=== PATIENT | male | born 1990 | race Caucasian/White ===

== ENCOUNTER 2024-12-19 00:23 | Inpatient (IN) | payer MEDICAID ==
[~2024-12-19] VITALS: Ht 175.3 cm; Wt 71.7 kg
[~2024-12-19 00:23] MED LIST: DIVA-153 PO; DIVA500T69 PO; IBUP-1554 PO; OLAN10TA26 PO
[2024-12-19 01:37] LABS: EOSINOPHILS % (AUTO) 2.2 % (1.0-6.0); HEMATOCRIT 41.4 % (41-53); HEMOGLOBIN 13.6 g/dL (13.5-17.5); LYMPHOCYTES # (AUTO) 2.8 K/uL (1.0-4.8); LYMPHOCYTES % (AUTO) 36.4 % (22.0-44.0); MEAN CORPUSCULAR HEMOGLOBIN 26.8 pg (26.0-34.0); MEAN CORPUSCULAR HGB CONC 32.8 G/dL (31.0-37.0); MEAN CORPUSCULAR VOLUME 82 fL (80-100); MONOCYTES # (AUTO) 0.8 K/uL (0.1-1.0); MONOCYTES % (AUTO) 10.5 % (2.0-9.0); NEUTROPHILS # (AUTO) 3.8 K/uL (1.8-7.7); NEUTROPHILS % (AUTO) 49.9 % (40.0-70.0); PLATELET COUNT (AUTO) 272 K/uL (150-450); RED BLOOD CELL COUNT(AUTO) 5.06 MIL/uL (4.50-5.90); WHITE BLOOD COUNT (AUTO) 7.6 K/uL (4.5-11.0)
[2024-12-19 01:45] LABS: ALCOHOL, BLOOD (SERUM) < 3 mg/dL (0-10)
[2024-12-19 01:47] LABS: ANION GAP 9 mmol/L (8-16); CALCIUM, TOTAL 8.6 mg/dL (8.8-10.5); CARBON DIOXIDE 26 mmol/L (22-29); CHLORIDE 103 mmol/L (98-107); CREATININE 1.01 mg/dL (0.60-1.30); GLOMERULAR FILTR. RATE CALC > 60 mL/min (>60); GLUCOSE,RANDOM 100 mg/dL (70-110); POTASSIUM 3.7 mmol/L (3.5-5.1); SODIUM SERUM 138 mmol/L (136-145); UREA NITROGEN, BLOOD 12 mg/dL (7-18)
[2024-12-19 01:50] LABS: COVID AG,FIA SOURCE NASAL SWAB
[2024-12-19 01:56] LABS: APPEARANCE,URINE CLEAR (CLEAR); BILIRUBIN,URINE NEGATIVE (NEGATIVE); COLOR,URINE LIGHT YELLOW (YELLOW); GLUCOSE, URINE (UA) NEGATIVE (NEGATIVE); KETONES,URINE NEGATIVE (NEGATIVE); LEUKOCYTE ESTERASE ,URINE NEGATIVE (NEGATIVE); NITRATE,URINE NEGATIVE (NEGATIVE); OCCULT BLOOD,URINE NEGATIVE (NEGATIVE); PROTEIN,URINE NEGATIVE (NEGATIVE); SPECIFIC GRAVITIY, URINE 1.015 (1.003-1.030); UROBILINOGEN,URINE <=1.0 mg/dL (<=1.0)
[2024-12-19 01:57] LABS: SARS-COV2 (COVID) ANTIGEN,FIA Negative (Negative)
[2024-12-19 02:03] LABS: AMPHET/METH SCREEN,URINE NEGATIVE (NEGATIVE); BARBITURATE SCREEN, URINE NEGATIVE (NEGATIVE); BENZODIAZEPINES SCREEN,URINE NEGATIVE (NEGATIVE); CANNABINOID SCREEN,URINE NEGATIVE (NEGATIVE); COCAINE SCREEN,URINE NEGATIVE (NEGATIVE); METHADONE SCREEN, URINE NEGATIVE (NEGATIVE); OPIATE SCREEN,URINE NEGATIVE (NEGATIVE); PHENCYCLIDINE SCREEN,URINE NEGATIVE (NEGATIVE)
[2024-12-19 02:04] LABS: ALCOHOL, URINE DRUG SCREEN NEGATIVE (NEGATIVE)
[2024-12-19 06:50] VITALS: O2SAT 100
[2024-12-19] MEDS ORDERED: ZOLPIDEM TARTRATE 10 MG TABLET PO PRN (10:30)
[2024-12-19 12:54] VITALS: BP 141/81; PULSE 88; RESP 17; TEMP 98.2; O2SAT 100
[2024-12-19] MEDS ORDERED: CloNIDine HCL 0.1 MG TABLET PO PRN (17:15)
[2024-12-19] MEDS ORDERED: PETROLATUM,WHITE 28 GM JELLY TP PRN (17:15)
[2024-12-19] MEDS ORDERED: IBUPROFEN 400 MG TABLET PO PRN (17:15)
[2024-12-19] MEDS ORDERED: LOPERAMIDE HCL 2 MG CAPSULE PO PRN (17:15)
[2024-12-19] MEDS ORDERED: MAGNESIUM HYDROXIDE SUSPENSION 30 ML UDCUP PO PRN (17:15)
[2024-12-19] MEDS ORDERED: ONDANSETRON 4 MG TABLET PO PRN (17:15)
[2024-12-19] MEDS ORDERED: ALBUTEROL SULFATE HFA 90 MCG/PUFF 8 GM INHALER IH PRN (17:15)
[2024-12-19] MEDS ORDERED: DOCUSATE SODIUM 100 MG CAPSULE PO PRN (17:15)
[2024-12-19] MEDS ORDERED: GuaiFENesin/D-METHORPHAN [SUGAR-FREE] 200-20MG/10 ML SYRUP UDCUP PO PRN (17:15)
[2024-12-19] MEDS: QUEtiapine FUMARATE 200 MG TABLET PO SCH (20:43)
[2024-12-19 20:49] VITALS: BP 137/97; PULSE 86; RESP 18; TEMP 97.4; O2SAT 99
[2024-12-20 08:45] LABS: BASOPHILS % (AUTO) 0.7 % (0.0-2.0); EOSINOPHILS % (AUTO) 3.2 % (1.0-6.0); HEMATOCRIT 47.2 % (41-53); HEMOGLOBIN 15.2 g/dL (13.5-17.5); LYMPHOCYTES # (AUTO) 2.3 K/uL (1.0-4.8); LYMPHOCYTES % (AUTO) 34.7 % (22.0-44.0); MEAN CORPUSCULAR HEMOGLOBIN 26.8 pg (26.0-34.0); MEAN CORPUSCULAR HGB CONC 32.2 G/dL (31.0-37.0); MEAN CORPUSCULAR VOLUME 83 fL (80-100); MONOCYTES # (AUTO) 0.7 K/uL (0.1-1.0); MONOCYTES % (AUTO) 10.8 % (2.0-9.0); NEUTROPHILS # (AUTO) 3.4 K/uL (1.8-7.7); NEUTROPHILS % (AUTO) 50.6 % (40.0-70.0); PLATELET COUNT (AUTO) 271 K/uL (150-450); RED BLOOD CELL COUNT(AUTO) 5.65 MIL/uL (4.50-5.90); RED CELL DISTRIBUTION WIDTH 14.3 % (11.5-14.5); WHITE BLOOD COUNT (AUTO) 6.6 K/uL (4.5-11.0)
[2024-12-20 09:01] LABS: HEMOGLOBIN A1C 4.9 % (3.8-5.6)
[2024-12-20 09:05] VITALS: BP 115/75; PULSE 61; RESP 16; TEMP 97.7; O2SAT 100
[2024-12-20 09:16] LABS: ALANINE AMINOTRANSFERASE 16 U/L (12-78); ALBUMIN 3.3 g/dL (3.4-5.0); ALKALINE PHOSPHATASE 85 U/L (46-116); ANION GAP 7 mmol/L (8-16); ASPARTATE AMINOTRANSFERASE 20 U/L (15-37); BILIRUBIN,TOTAL 0.2 mg/dL (0.1-1.0); CALCIUM, TOTAL 9.1 mg/dL (8.8-10.5); CARBON DIOXIDE 29 mmol/L (22-29); CHLORIDE 104 mmol/L (98-107); CHOL/HDL RATIO 3.1 (4.2-7.3); CHOLESTEROL 132 mg/dL (131-200); CREATININE 0.96 mg/dL (0.60-1.30); GLOMERULAR FILTR. RATE CALC > 60 mL/min (>60); GLUCOSE,RANDOM 68 mg/dL (70-110); HDL CHOLESTEROL 42 mg/dL (40-60); LDL CHOL (CALC.) 58 mg/dL (0-130); POTASSIUM 4.1 mmol/L (3.5-5.1); SODIUM SERUM 140 mmol/L (136-145); THYROID STIMULATING HORMONE 1.31 uIU/mL (0.36-3.74); TOTAL PROTEIN, SERUM 7.4 g/dL (6.4-8.2); TRIGLYCERIDES 162 mg/dL (15-150); UREA NITROGEN, BLOOD 12 mg/dL (7-18)
[2024-12-20] MEDS: QUEtiapine FUMARATE 100 MG TABLET PO SCH (09:59)
[2024-12-20 20:00] VITALS: BP 116/60; PULSE 70; RESP 17; TEMP 96.4; O2SAT 95
[2024-12-21 08:51] VITALS: BP 119/72; PULSE 74; RESP 18; TEMP 97.7; O2SAT 99
[2024-12-21 20:20] VITALS: BP 141/101; PULSE 89; RESP 16; TEMP 97.2; O2SAT 99
[2024-12-22 08:53] VITALS: BP 133/63; PULSE 78; RESP 16; TEMP 98.2; O2SAT 100
[2024-12-22 21:12] VITALS: BP 108/61; PULSE 85; RESP 20; TEMP 97.3; O2SAT 96
[2024-12-23 08:06] VITALS: BP 127/61; PULSE 87; RESP 16; TEMP 98.2; O2SAT 98
[2024-12-23] MEDS: NICOTINE 14 MG/24 HOUR PATCH TD PRN (13:35)
[2024-12-23 21:16] VITALS: BP 133/77; PULSE 89; RESP 20; TEMP 98.8; O2SAT 97
[2024-12-24 08:18] VITALS: BP 144/79; PULSE 114; RESP 17; TEMP 98.1; O2SAT 97
[2024-12-24 18:27] VITALS: BP 117/85; PULSE 98; RESP 18; TEMP 98.1; O2SAT 100
[2024-12-24 20:33] VITALS: BP 119/86; PULSE 97; RESP 18; TEMP 97.6; O2SAT 100
[2024-12-25 08:43] VITALS: BP 107/64; PULSE 70; RESP 18; TEMP 97.5; O2SAT 100
[2024-12-25] MEDS: LORazepam 2 MG TABLET PO PRN (10:43)
[2024-12-25] MEDS: HALOPERIDOL 5 MG TABLET PO PRN (10:43)
[2024-12-25 21:23] VITALS: BP 110/77; PULSE 74; RESP 18; TEMP 97.6; O2SAT 97
[2024-12-26 08:06] VITALS: BP 110/75; PULSE 78; RESP 16; TEMP 98; O2SAT 95
[2024-12-26] MEDS: NICOTINE POLACRILEX 2 MG LOZENGE PO PRN (10:14)
[2024-12-26 21:22] VITALS: BP 130/80; PULSE 97; RESP 18; TEMP 97.3; O2SAT 95
[2024-12-27 09:31] VITALS: BP 128/79; PULSE 86; RESP 18; TEMP 98.6; O2SAT 98
[2024-12-27 20:16] VITALS: BP 132/88; PULSE 86; RESP 18; TEMP 98.3; O2SAT 99
[2024-12-28 09:27] VITALS: BP 122/76; PULSE 79; RESP 16; TEMP 97.2; O2SAT 99
[2024-12-28 19:58] VITALS: BP 108/68; PULSE 88; RESP 18; TEMP 97.6; O2SAT 98
[2024-12-28] MEDS: MAG HYDROX/ALUMINUM HYD/SIMETH ES 30 ML SUSPENSION UDCUP PO PRN (19:58)
[2024-12-28] MEDS: ACETAMINOPHEN 325 MG TABLET PO PRN (19:59)
[2024-12-28 20:04] VITALS: BP 109/65; PULSE 89; RESP 18; TEMP 98; O2SAT 97
[2024-12-28 20:28] VITALS: BP 108/68; PULSE 88; RESP 18; TEMP 97.6; O2SAT 98
[2024-12-29 10:23] VITALS: BP 131/85; PULSE 83; RESP 18; TEMP 97.2; O2SAT 98
[2024-12-29 20:31] VITALS: BP 131/73; PULSE 74; RESP 18; TEMP 97.2; O2SAT 99
[2024-12-30 09:49] VITALS: BP 141/79; PULSE 84; RESP 18; TEMP 97.6; O2SAT 99
[2024-12-30 11:34] VITALS: PULSE 82
[2024-12-30 20:16] VITALS: BP 126/84; PULSE 86; RESP 17; TEMP 98.4; O2SAT 96
[2024-12-31] MEDS ORDERED: QUET200T30 PO ×2 (07:07→07:09)
[2024-12-31] MEDS ORDERED: QUET100T34 PO ×2 (07:07→07:09)
[2024-12-31 08:00] VITALS: BP 136/80; PULSE 80; RESP 18; TEMP 96.7; O2SAT 98
== END 2024-12-31 09:51 | disposition home or self-care (01) | DRG 753 ==
LOC: EMS 00:23 → B2S 10:46
PROVIDERS: ADMIT Psychiatry & Neurology Child & Adolescent Psychiatry; ATTEND Psychiatry & Neurology Psychiatry
PROC: GZHZZZZ Group Psychotherapy (ICD-10-PCS; principal; 2024-12-20)
PROC: GZ52ZZZ Individual Psychotherapy, Cognitive (ICD-10-PCS; 2024-12-20)
PROC: GZ56ZZZ Individual Psychotherapy, Supportive (ICD-10-PCS; 2024-12-20)
DX: F31.5 Bipolar disorder, current episode depressed, severe, with psychotic features (principal); R45.851 Suicidal ideations; F41.9 Anxiety disorder, unspecified; G47.00 Insomnia, unspecified; Z20.822 Contact with and (suspected) exposure to COVID-19; R10.13 Epigastric pain; I10 Essential (primary) hypertension; Z79.899 Other long term (current) drug therapy; Z87.891 Personal history of nicotine dependence; Z88.8 Allergy status to other drugs, medicaments and biological substances; Z91.030 Bee allergy status
CPT/HCPCS: 80048; 80053; 80061; 80307; 81003; 83036; 84443; 85025; 99285; G0480